=== PATIENT | female | born 1955 | race Caucasian/White ===

== ENCOUNTER 2024-08-12 15:44 | Emergency (ER) | payer MEDICARE, OTHER, SELFPAY ==
[2024-08-12] VITALS (23 sets, daily range): BP systolic 95–136; BP diastolic 49–104; BMI 26.1
[2024-08-12] MEDS: ZOFRAN 4 MG IV (15:54)
[2024-08-12] MEDS: DILAUDID 0.5 MG IV (15:54)
--- NOTE | 2024-08-12 16:26 | ED.MUSCINJ ---
HPI-Injury
<Rosy Kelly NP - Last Filed: 08/12/24 19:00>
General
Chief Complaint: Fall
Source: patient
Exam Limitations: none
Time Seen by Provider: 08/12/24 15:46
Nursing documentation reviewed up to this point in time: agreed with
History of Present Illness-Injury
Is this injury a work related problem?: No
Is pt an associate of [facility]/[place]?: No
Initial Injury comments:
Patient states she was vacuuming, bent forward and dislocated right prosthetic hip. States original replacement was in 2007 [facility] [place]. This past march she had a hip revision, [facility] [place]. She dislocated in May but when she stood up it reduced on own.
Brought to ED via EMS for eval.
Past History
<Rosy Kelly NP - Last Filed: 08/12/24 19:00>
Past History
ED Past Medical History: Cancer (breast cancer >20yrs. Lumpectomy and radiation); Negative Asthma
ED Past Surgical History: Gynecological and Orthopedic
Social History
Tobacco: Non-smoker
Alcohol: Occasional
Drug: None
Personal:
Living: with family
Employment: Employed
Family History
Family History: Other (Noncontributory)
Review of Systems
<Rosy Kelly DIRECTOR OF [employer]ATE[employer]IC MARKETING - Last Filed: 08/12/24 19:00>
Review of Systems
Allergies reviewed?: Yes
All Other Systems: ROS reviewed and negative except as documented in HPI and ROS
Constitutional: Reports no symptoms
EENT: Reports no symptoms
Respiratory: Reports no symptoms
Cardiac: Reports no symptoms
ABD/GI: Reports no symptoms
: Reports no symptoms
Musculoskeletal: Reports joint pain (right prosthetic hip dislocation)
Skin: Reports no symptoms
Neurological: Reports no symptoms
Psychiatric: Reports no symptoms
Musculoskeletal Injury Exam
<Rosy Kelly NP - Last Filed: 08/12/24 19:00>
Musculoskeletal Injury Exam
Right Hip:
Pain with Movement?: Severe
Tender to palpation?: Moderate
Soft tissue swelling?: None
External deformity and angulation?: None
Joint effusion?: None
Contusion?: None
Hematoma-local bleeding into tissue?: None
Strain- Sprain- Tear (Connective tissue injury)?: Moderate
Crepitus with movement?: No
Joint instability?: No
Malalignment/deformity?: Yes
Range of motion: Limited
Distal skin color and temperature: normal-warm & good color
Capillary Refill: normal
Normal distal neurovascular exam?: Yes
Peripheral Pulses: posterior tibial (right): 3+ and dorsalis pedis (right): 3+
Phy Exam
<Rosy Kelly NP - Last Filed: 08/12/24 19:00>
General Physical Exam
General Presentation: well appearing and no apparent distress
General age: appears stated age
General Skin: warm and dry
General Habitus: normal
General Mental: alert
Musculoskeletal Exam
Musculoskeletal Exam: neuro vasc intact
Skin Exam
Skin Exam: normal color, warm/dry and no rash
Psychiatric Exam
Psychiatric Exam: normal mood/affect
Injury Course
<Rosy Kelly NP - Last Filed: 08/12/24 19:00>
Orders/Labs/Results
Orders:
Orders
08/12/24 15:51
HYDROmorphone [Dilaudid] 0.5 mg IV NOW STA
Ondansetron Injectable [Zofran] 4 mg IV NOW STA
08/12/24 15:53
Hip, Right 2-3 Views [CR Hip - RT w/wo Pel 2-3 Vw*] Urgent
Comment:
Reason For Exam: trauma
Include a pelvis x-ray?: Yes
08/12/24 16:35
Propofol [Diprivan] 20 ml .ROUTE .STK-MED
08/12/24 16:58
Hip, Right 2-3 Views [CR Hip - RT w/wo Pel 2-3 Vw*] Urgent
Comment:
Reason For Exam: Post reduction, portable
Include a pelvis x-ray?: No
08/12/24 16:59
Knee Immobilizer Right-Treatme ONCE
<Nate Gordon, DO - Last Filed: 08/12/24 17:00>
Orders/Labs/Results
Orders:
Orders
08/12/24 15:51
HYDROmorphone [Dilaudid] 0.5 mg IV NOW STA
Ondansetron Injectable [Zofran] 4 mg IV NOW STA
08/12/24 15:53
Hip, Right 2-3 Views [CR Hip - RT w/wo Pel 2-3 Vw*] Urgent
Comment:
Reason For Exam: trauma
Include a pelvis x-ray?: Yes
08/12/24 16:35
Propofol [Diprivan] 20 ml .ROUTE .STK-MED
08/12/24 16:58
Hip, Right 2-3 Views [CR Hip - RT w/wo Pel 2-3 Vw*] Urgent
Comment:
Reason For Exam: Post reduction, portable
Include a pelvis x-ray?: No
08/12/24 16:59
Knee Immobilizer Right-Treatme ONCE
Procedures
<Nate Gordon, DO - Last Filed: 08/12/24 17:00>
Moderate Sedation
ASA Risk Score: Class II
Chart and allergies reviewed: Yes
Consent for anesthesia obtained: Yes
Time out completed (validating right patient & procedure): Yes
Moderate Sedation Start Time(when first medication is given): 16:50
History of difficult intubation: No
Airway free of obstruction: Yes
Patient has a gag reflex: Yes
Patient is able to open mouth: Yes
Patient has no dentures: Yes
Patient has no loose teeth: Yes
Medication administered by Provider during Moderate Sedation: IV Propofol (mg)
Total dose administered: 150
Time drug administered: 16:50
Comment: Time out 1647
Joint/Fracture Reduction
Right Anterior Lateral Proximal Hip:
Indication for procedure:: Right hip dislocation
Procedure completed by: Nate Gordon DO
Consent form signed: Yes
Joint reduced: with anesthesia sedation
Injury was: closed
Further treatement: needs re-check only
Post reduction exam: stable
Capillary Refill: normal
Peripheral Pulses: dorsalis pedis (right): 2+
<Rosy Kelly NP - Last Filed: 08/12/24 19:00>
*Radiology
Radiology exam reviewed: radiology read reviewed
*Pulse Oximetry
Patient hypoxic: no
*Critical Care Note
Total Time (30-74mins, 75-104mins- exclusive of procedures): Not Applicable
<Rosy Kelly NP - Last Filed: 08/12/24 19:00>
Update Note
Update Note:
Patient to ED for dislocation to right hip prosthesis. Bent forward today and dislocated hip. Hip reduced by Dr. Gordon after administration of propafol for moderate sedation. SHe tolerated procedure without incident. Placed in knee immobilizer
splint. SHe is discharged home with spouse and will follow up with her orthopedic provider this week.
ED Attending Note
<Rosy Kelly NP - Last Filed: 08/12/24 19:00>
-
Portions of this chart may have been created with voice recognition software.� Occasional wrong word or��sound alike� substitutions may have occurred due to the inherent limitations of voice recognition software.
<Nate Gordon, DO - Last Filed: 08/12/24 17:00>
ED Attending Note
Patient seen and examined by attending physician: Yes
I performed the substantive portion of visit, reviewed & personally made and approve the management plan that is documented in note by myself or JEFFRY.: Yes
ED Attending Note:
I have seen and evaluated the patient with a [id number] encounter. I have spoken to the advance practicer provider and involved in the medical history, the physical exam, medical decision making.
Evaluation and management service: agree unless noted differently below.
Results interpretation: agree unless noted differently below.
Focused HPI: 69-year-old female presenting with right hip pain. Patient believes that she dislocated her hip when she bent forward
Physical exam: Uncomfortable. Right hip is shortened but neurovascularly intact
Medical Decision Making: X-ray consistent with hip dislocation. Patient tolerated moderate sedation well and the hip was easily reduced. Patient placed in knee immobilizer. Distal leg remains neurovascularly intact
Discharge Plan
Departure
Patient Disposition: Home (Routine Discharge)
Date of Disposition: 08/12/24
Time of Disposition: 18:56
Patient with high blood pressure during this ER visit?: No
Discharge Problem:
Dislocation of right hip
Instructions: Hip Dislocation (DC), MODERATE SEDATION ADULT
Prescriptions:
No Action
omeprazole magnesium [Prilosec OTC] 20 MG tablet,delayed release (DR/EC)
20 mg PO DAILY Qty: 20 0RF
Activity Restrictions/Additional Instructions:
Follow up with your orthopedic provider this week. Use knee immobilizer until discontinued by your orthopedic provider.
Interventions
Interventions:
*Risk Screen - Suicide Last Done: 08/12/24 15:47
*General Assessment Last Done: 08/12/24 15:47
*Neglect/Abuse Screening Last Done: 08/12/24 15:47
ED- Fall Risk Assessment Last Done: 08/12/24 15:48
*ED COVID-19 Vaccine History Last Done: 08/12/24 15:47
ED-Musculoskeletal Assessment Last Done: 08/12/24 16:19
ED- Neurological Assessment Last Done: 08/12/24 15:48
ED-Skin Assessment Last Done: 08/12/24 16:19
Discharge Date and Time
Print Language: YAKUT
== END 2024-08-12 19:16 | disposition home or self-care (01) ==
LOC: EMR 15:44
PROVIDERS: EMERGENCY PHYSICIAN Student in an Organized Health Care Education/Training Program; FAMILY PHYSICIAN Family Medicine
DX: T84.020A Dislocation of internal right hip prosthesis, initial encounter (principal); X58.XXXA Exposure to other specified factors, initial encounter; I48.91 Unspecified atrial fibrillation; Z85.3 Personal history of malignant neoplasm of breast; Z92.3 Personal history of irradiation; Z96.643 Presence of artificial hip joint, bilateral; Z96.652 Presence of left artificial knee joint; Z88.0 Allergy status to penicillin
CPT/HCPCS: 99285; 27265; 96374; 96375; 99152; 73502